=== PATIENT | female | born 1935 | race Caucasian/White ===

== ENCOUNTER 2017-12-04 07:47 | Day surgery (SDC) | payer MEDICARE, BC ==
[2017-12-04] MEDS ORDERED: Dextrose 5%-Lactated Ringers 1,000 ML IV SCH (08:15)
[2017-12-04] MEDS ORDERED: Propofol 200 MG/20 ML SDV ONE (09:51)
[2017-12-04] MEDS ORDERED: fentaNYL 100 MCG/2 ML SDV ONE (09:51)
[2017-12-04 11:07] VITALS: BP 123/64
--- NOTE | 2017-12-11 14:12 | OR ---
DATE OF PROCEDURE: 12/04/2017 PREOPERATIVE DIAGNOSIS: Recent onset of narrow stools with CT scan showing an area of possible narrowing in distal descending colon. POSTOPERATIVE DIAGNOSIS: Normal colonoscopic examination. OPERATIVE PROCEDURE: Flexible colonoscopy. ANESTHESIA: IV sedation. INDICATION FOR PROCEDURE: This is an 82-year-old female with long-standing constipation, recently noted increasing problems with narrowing of her stools. A CT scan was obtained which suggested a possible area of narrowing in the distal descending colon. Given this, the patient is to undergo a full flexible colonoscopy with biopsies as indicated. Potential risks including bleeding and perforation were discussed, and the patient wishes to proceed. DETAILS OF PROCEDURE: The patient was taken to the operating room and placed in a left lateral decubitus position. IV sedation was administered, after which the initial digital rectal exam was performed and was unremarkable. Colonoscope was passed into the rectum with retroflexion revealing uncomplicated hemorrhoidal columns. There was some slight engorgement of the hemorrhoids, which might be possibly contributing to the patient's narrowing of the stools. The colonoscope was then passed to the level of the cecum. From that level upward, no additional abnormalities were noted, certainly no areas of narrowing or colitis and no polyps or other signs of neoplasia. No diverticula were seen. This prep was quite good with there only being a small amount of liquid stool present. The scope was then withdrawn, the above findings were reconfirmed, and the procedure was then concluded. If anything, the patient might have some slightly engorgement of the hemorrhoids and that might contribute to the narrowing of the stools, nothing anatomically was pathologic beyond that point, and vigorous bowel regimen should probably be initiated given the patient's history of chronic constipation. One additional item on this is that there is some question whether any lesion in the liver might be problematic and MRI showed this to be most likely a complex cyst or a hemangioma, but not in any way is suspicious for neoplasia. The patient will be set up to see AUSTIN Nichole, [facility], for followup of her bowel situation. Mervin Valdez MD /[id number]
== END 2017-12-04 11:20 | disposition home or self-care (01) ==
LOC: JP.SDS 07:47
PROVIDERS: ATTEND Surgery
DX: K58.1 Irritable bowel syndrome with constipation (principal); K59.00 Constipation, unspecified; K64.9 Unspecified hemorrhoids; J44.9 Chronic obstructive pulmonary disease, unspecified; K21.9 Gastro-esophageal reflux disease without esophagitis; E78.5 Hyperlipidemia, unspecified; E11.9 Type 2 diabetes mellitus without complications; M79.1 Myalgia; Z88.0 Allergy status to penicillin; Z88.8 Allergy status to other drugs, medicaments and biological substances; Z79.84 Long term (current) use of oral hypoglycemic drugs; Z79.899 Other long term (current) drug therapy
CPT/HCPCS: 45378; J2704; J3010; J7042

== ENCOUNTER 2018-09-25 07:25 | Day surgery (SDC) | payer BC, MEDICARE ==
[~2018-09-25 07:25] MED LIST: Bupivacaine 0.5%/EPINEPHrine 1:200,000 50 ML MDV ONE; Dexamethasone 4 MG/ML SDV ONE; Glycopyrrolate 0.2 MG/ML 5 ML MDV ONE; Meropenem 500 MG SDV ONE; Neostigmine Methylsulfate 1 MG/ML 5 ML Syringe ONE; Ondansetron 4 MG/2 ML SDV ONE; Propofol 200 MG/20 ML SDV ONE; Rocuronium 50 MG/5 ML Vial ONE; Succinylcholine 200 MG/10 ML MDV ONE; fentaNYL 250 MCG/5 ML SDV ONE
[2018-09-25] MEDS ORDERED: Acetaminophen 500 MG Tab PO ONE (07:45)
[2018-09-25] MEDS ORDERED: Meropenem 500 MG in Sodium Chloride 0.9% 50 ML IV ONE (07:45)
[2018-09-25] MEDS ORDERED: Dextrose 5%-Lactated Ringers 1,000 ML IV SCH (07:45)
[2018-09-25] MEDS ORDERED: Naloxone 0.4 MG/ML SDV ONE (09:34)
[2018-09-25] MEDS ORDERED: Levofloxacin/Dextrose 5%-Water 500 MG in Premix Bag 1 BAG IV ONE (09:45)
[2018-09-25] MEDS ORDERED: Acetaminophen/HYDROcodone 325-5 MG Tab PO PRN (10:27)
[2018-09-25] MEDS ORDERED: Clindamycin Phosphate 900 MG in Sodium Chloride 0.9% 100 ML IV ONE (10:45)
[2018-09-25 11:15] VITALS: BP 111/47
--- NOTE | 2018-09-28 08:28 | OR ---
DATE OF PROCEDURE: 09/25/2018 SURGEON: Mervin Valdez MD PREOPERATIVE DIAGNOSIS: Probable rectal prolapse. POSTOPERATIVE DIAGNOSES: 1. Rectal prolapse. 2. Single remaining engorged mixed hemorrhoidal column, status post proctopexy. OPERATIVE PROCEDURE: Anorectal examination under anesthesia followed by: 1. Proctopexy via perineal approach (57950). 2. Excision of single column of mixed hemorrhoid (82802). ANESTHESIA: General. INDICATION FOR PROCEDURE: This is an 83-year-old presenting with some persistent narrowed stools, as well as examination showing rectal prolapse. Plan is to proceed with diagnostic anorectal examination under anesthesia to confirm what procedure to be performed, which will be either proctopexy and/or hemorrhoidectomy, depending on the degree of prolapse and thr degree of hemorrhoids remaining, if proctopexy is completed. Potential risks of the procedure including bleeding, infection, problems with fecal incontinence following the procedure, as well as remote possibility of cardiopulmonary, septic, or hemorrhagic complications leading to were all discussed, and the patient wishes to proceed. DETAILS OF PROCEDURE: The patient was taken to the operating room, placed in a supine position. After general endotracheal anesthesia was induced, she converted to a lithotomy position, and an anal and perianal prep performed. Examination once again confirmed a significant amount of prolapse. This included the mucosa as well as some degree of musculature. The tone circumferentially, however, was fairly good. At that point, the decision was made to proceed with a proctopexy of the stapler. With the anal retractors in place, a pursestring stitch of 3-0 Prolene stitch was placed circumferentially around the rectum roughly 3 cm above the dentate line. Once this was in place, then the proctopexy stapler was opened and the anvil placed above the level of pursestring. The pursestring was then pulled up tightly and the strings pulled down through the side holes. The stapler was then closed, and vaginal palpitation confirmed no imbrication of the vagina with the stapler. Stapler was then fired and, after about 30 seconds, opened and the stapler along with a disk of tissue removed. The staple line circumferentially was somewhat lower than optimal, but appeared to be otherwise satisfactory. She recently had a little bit more discomfort than other people. This probably has to do with the degree of laxity of the pelvic floor in terms of where the staple line got fired. The patient at this point still had a single quite engorged column of the mixed hemorrhoid. This was located in the left posterolateral quadrant. This was clamped across its base, excised, and then the base suture-ligated with a running locked 4-0 Vicryl stitch. At this point, no further problems were noted. The area was anesthetized with 0.5% Marcaine. No packing was placed. The patient was taken to the recovery room in satisfactory condition. There were no evident complications. Mervin Valdez MD /[id number]
== END 2018-09-25 11:30 | disposition home or self-care (01) ==
LOC: JP.SDS 07:25
PROVIDERS: ATTEND Surgery
DX: K62.3 Rectal prolapse (principal); K64.8 Other hemorrhoids; K59.00 Constipation, unspecified; J44.9 Chronic obstructive pulmonary disease, unspecified; E78.5 Hyperlipidemia, unspecified; E03.9 Hypothyroidism, unspecified; E11.9 Type 2 diabetes mellitus without complications; K58.9 Irritable bowel syndrome, unspecified; Z98.890 Other specified postprocedural states; Z79.899 Other long term (current) drug therapy; Z79.84 Long term (current) use of oral hypoglycemic drugs
CPT/HCPCS: 45541; 46255; 82962; A9270; J0330; J1100; J1956; J2185; J2310; J2405; J2704; J2710; J3010; J3490; J7030; J7042; J7050

== ENCOUNTER 2020-10-11 09:51 | Emergency (ER) | payer MEDICARE ==
[2020-10-11] MEDS ORDERED: Lidocaine 2% Jelly 10 ML Urojet MUCMEM ONE (10:13)
--- NOTE | 2020-10-11 10:16 | EDM.PDOC ---
ED HPI GENERAL MEDICAL PROBLEM - General Chief Complaint: Gastrointestinal Problem Stated Complaint: CONSTIPATED Time Seen by Provider: 10/11/20 10:05 Source of Information: Reports: Patient History Limitations: Reports: No Limitations - History of Present Illness INITIAL COMMENTS - FREE TEXT/NARRATIVE: 85-year-old female with a history of intermittent constipation, arrives with rectal pain, impaction, and constipation issues. This has been worsening over the past 24 to 48 hours. She usually keeps up with stool softeners and water, but she fell behind and now the perirectal area is too painful. She has tried digital decompaction herself. No fevers or chills, no nausea or vomiting, no abdominal distention. Onset: Gradual Duration: Day(s): (Last vomit was 3 days ago) Location: Reports: Abdomen (Mild upper abdominal cramping) Worsens with: Reports: Other (Perirectal discomfort worsens with bowel movement attempts) Associated Symptoms: Denies: Fever/Chills, Nausea/Vomiting, Shortness of Breath - Related Data Allergies Allergy/AdvReac Type Severity Reaction Status Date / Time Penicillins Allergy Cannot Verified 10/11/20 10:03 Remember risedronate sodium AdvReac Nausea and Verified 10/11/20 10:03 [From Atelvia] Vomiting Home Meds: Home Meds Amitriptyline [Elavil] 20 mg PO BEDTIME 09/03/13 [History] Calcium Polycarbophil [Fiber Therapy] 625 mg PO BID 09/03/13 [History] Cetirizine [ZyrTEC] 10 mg PO DAILY 09/03/13 [History] Cholecalciferol (Vitamin D3) [Vitamin D3] 2,000 unit PO BID 09/03/13 [History] Citalopram Hydrobromide [Celexa] 40 mg PO BEDTIME 09/03/13 [History] Fish Oil/Borage/Flax/Om3,6,9 1 [[place] 3-6-9 Complex Softgel] 1,000 mg PO DAILY 09/03/13 [History] Levothyroxine 75 mcg PO ACBRK 09/03/13 [History] metFORMIN [Glucophage XR] 500 mg PO DAILY 09/03/13 [History] polyethylene glycoL 3350 [Miralax] 17 gm PO DAILY 09/03/13 [History] Cyanocobalamin (Vitamin B-12) [Vitamin B-12] 2,000 mcg PO DAILY 12/02/17 [History] Furosemide 40 mg PO ASDIRECTED PRN 09/24/18 [History] Past Medical History HEENT History: Reports: Allergic Rhinitis, Cataract, Impaired Vision Other HEENT History: wears glasses Respiratory History: Reports: Interstitial Lung Disease Other Respiratory History: coccidomycosis Gastrointestinal History: Reports: Chronic Constipation, GERD, Hiatal Hernia Genitourinary History: Reports: None ADULT DAYCARE COORDINATOR History: Reports: Fibroids, Musculoskeletal History: Reports: Fibromyalgia, Osteoarthritis Other Musculoskeletal History: both hips burcitis Neurological History: Reports: Brain Injury, Concussion, Head Trauma Other Neuro History: 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 Psychiatric History: Reports: Depression Endocrine/Metabolic History: Reports: Diabetes, Type II, Hypoparathyroidism, Obesity/BMI 30+, Osteopenia Hematologic History: Reports: Blood Transfusion(s) - Infectious Disease History Infectious Disease History: Reports: Chicken Pox, Measles, Mumps, Novel Coronavirus, Rubella, Scarlet Fever - Past Surgical History Head Surgeries/Procedures: Reports: None HEENT Surgical History: Reports: Cataract Surgery, Tonsillectomy Respiratory Surgical History: Reports: None GI Surgical History: Reports: Appendectomy, Colonoscopy, Bettina Fundoplication Female Surgical History: Reports: Hysterectomy, Salpingo-Oophorectomy Endocrine Surgical History: Reports: None Neurological Surgical History: Reports: None Musculoskeletal Surgical History: Reports: Carpal Tunnel, Knee Replacement, Shoulder Replacement Other Musculoskeletal Surgeries/Procedures:: bilateral knees Dermatological Surgical History: Reports: None Social & Family History - Family History Cardiac: Reports: CA : Reports: Renal Calculus Endocrine/Metabolic: Reports: Diabetes, type II Oncologic: Reports: Pancreatic - Tobacco Use Tobacco Use Status *Q: Never Tobacco User Second Hand Smoke Exposure: No - Caffeine Use Caffeine Use: Reports: Coffee - Alcohol Use Days Per Week of Alcohol Use: 7 Number of Drinks Per Day: 1 Total Drinks Per Week: 7 - Recreational Drug Use Recreational Drug Use: No ED ROS GENERAL - Review of Systems Review Of Systems: See Below Constitutional: Denies: Fever, Chills HEENT: Reports: No Symptoms Respiratory: Denies: Shortness of Breath Cardiovascular: Denies: Chest Pain GI/Abdominal: Reports: Abdominal Pain (Mild cramping), Constipation, Other (Some perirectal discomfort) Musculoskeletal: Reports: Muscle Pain Neurological: Reports: No Symptoms ED EXAM, GI/ABD - Physical Exam Exam: See Below Exam Limited By: No Limitations General Appearance: Alert. No: Anxious Eyes: Bilateral: Normal Appearance (No jaundice) Head: Atraumatic Respiratory/Chest: No Respiratory Distress, Lungs Clear Cardiovascular: Regular Rate, Rhythm Rectal (Female) Exam: Normal Exam, Other (Generous stool was in rectum but it was soft and not impacted, no significant perirectal lesions or tenderness) Extremities: No: Pedal Edema Neurological: Alert, Oriented Course - Vital Signs Last Recorded V/S: Last Vital Signs Temp 97.8 F 10/11/20 10:05 Pulse 72 10/11/20 10:05 Resp 18 10/11/20 10:05 BP 132/53 L 10/11/20 10:05 Pulse Ox 98 10/11/20 10:05 - Orders/Labs/Meds Meds: Medications Discontinued Medications Generic Name Dose Route Start Last Admin Trade Name Freq PRN Reason Stop Dose Admin Lidocaine HCl 10 ml 10/11/20 10:13 10/11/20 10:27 Lidocaine 2% Jelly 10 Ml Urojet MUCMEM 10/11/20 10:14 10 ml ONETIME ONE Administration Sodium Biphosphate/Sodium Phosphate 133 ml 10/11/20 10:45 10/11/20 10:54 Sodium Phosphate,Monobasic/Sodium Phosphate,Dibasic Enema 133 Ml Bottle RECTAL 10/11/20 10:46 133 ml ONETIME ONE Administration - Re-Assessments/Exams Free Text/Narrative Re-Assessment/Exam: 10/11/20 11:39 Initially just digital decompaction was unsuccessful so fleets enema was tried. She also did not have significant results from this so soap suds enema was used and this worked well. She had a significant bowel movement. She felt much better and will be discharged. Departure - Departure Time of Disposition: 11:47 Disposition: Home, Self-Care 01 Clinical Impression: Constipation by delayed colonic transit - Discharge Information Instructions: Constipation, Adult Referrals: Leobardo Garcia MD [Primary Care Provider] - Forms: ED Department Discharge Care Plan Goals: Stay hydrated with water, use MiraLAX or Colace for stool softening and return if problems or concerns. Sepsis Event Note (ED) - Evaluation Sepsis Screening Result: No Definite Risk - Focused Exam Vital Signs: Vital Signs Temp Pulse Resp BP Pulse Ox 10/11/20 10:05 97.8 F 72 18 132/53 L 98 10/11/20 10:02 97.8 F 72 18 132/53 L 98
[2020-10-11 10:32] VITALS: BP 132/53; PULSE 72
[2020-10-11] MEDS ORDERED: Sodium Phosphate,Monobasic/Sodium Phosphate,Dibasic Enema 133 ML Bottle RECTAL ONE (10:45)
== END 2020-10-11 11:47 | disposition home or self-care (01) ==
LOC: JP.ED 09:51
DX: K59.01 Slow transit constipation (principal); E11.9 Type 2 diabetes mellitus without complications; Z88.0 Allergy status to penicillin; Z88.8 Allergy status to other drugs, medicaments and biological substances; Z79.84 Long term (current) use of oral hypoglycemic drugs; Z79.899 Other long term (current) drug therapy; Z90.49 Acquired absence of other specified parts of digestive tract; Z90.710 Acquired absence of both cervix and uterus
CPT/HCPCS: 99283; A9270